=== PATIENT | male | born 1985 | race Caucasian/White ===

== ENCOUNTER 2016-05-25 17:43 | Emergency (ER) | payer OTHER ==
[~2016-05-25] VITALS: Ht 177.8 cm; Wt 79.4 kg
[2016-05-25 17:57] VITALS: BP 148/83
--- NOTE | 2016-05-25 19:34 | NUR ---
Patient to bed 06.
--- NOTE | 2016-05-25 19:35 | NUR ---
30/M BIBA C/O CHEST PAIN. EMS STATES, BYSTANDERS IN [place] CALLED 911 BECAUSE PATIENT WAS SLEEPING ON A COUCH NEAR THE STREET. WHEN ARRIVED ON SCENE PATIENT WAS COMPLAINING OF CHEST PAIN. PT ON PHYSICAL DAMAGE APPRAISER, STATES THAT LYING SUPINE MAKES PAIN WORSE. ER MADE AWARE.
--- NOTE | 2016-05-25 19:40 | NUR ---
Dr. Johnson evaluating patient at bedside.
[2016-05-25 20:18] VITALS: BP 143/80
--- NOTE | 2016-05-25 20:18 | NUR ---
PER ER MD PT STABLE FOR discharged with v/s stable. Written and verbal after care instructions given and explained. Patient alert, oriented and verbalized understanding of instructions. Ambulatory with steady gait. All questions addressed prior to discharge. ID band removed. Patient advised to follow up with PMD TOMORROW OR RETURN TO ER IF CONDITION WORSENS. Rx of AZITHROMYCIN given. Patient educated on indication of medication including possible reaction and side effects. Opportunity to ask questions provided and answered.FOOD PROVIDED FOR PT.
== END 2016-05-25 20:18 | disposition home or self-care (01) ==
LOC: MED 17:43
DX: J18.9 Pneumonia, unspecified organism (principal); Z90.89 Acquired absence of other organs
CPT/HCPCS: 71010; 93005; 99284; Q0092